=== PATIENT | female | born 2000 | race Caucasian/White ===

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

== ENCOUNTER 2021-07-05 | Emergency (ER) | payer MEDICAID ==
[~2021-07-05] VITALS: Ht 167.6 cm; Wt 134.0 kg
[2021-07-05 00:03] VITALS: BP 154/76
[2021-07-05] MEDS ORDERED: BENZ-16 MT (02:13)
== END 2021-07-05 02:40 | disposition home or self-care (01) ==
LOC: ER
DX: J06.9 Acute upper respiratory infection, unspecified (principal); Z20.822 Contact with and (suspected) exposure to COVID-19
CPT/HCPCS: 99283; C9803; U0003; U0005

== ENCOUNTER 2024-07-26 13:30 | Emergency (ER) | payer MEDICAID ==
[~2024-07-26] VITALS: Ht 170.2 cm; Wt 105.0 kg
[~2024-07-26 13:30] MED LIST: BENZ-16 MT
[2024-07-26 14:32] VITALS: O2SAT 100
[2024-07-26] MEDS: ACETAMINOPHEN 325MG TABLET PO ONE (21:00)
[2024-07-26] MEDS: ONDANSETRON 4MG ODT PO ONE (21:00)
[2024-07-26] MEDS ORDERED: TOPUD MT (22:11)
[2024-07-26] MEDS ORDERED: ONDA4TAB50 MT (22:11)
[2024-07-26 22:45] VITALS: BP 129/75; PULSE 84; RESP 20; TEMP 36.94740; O2SAT 100
== END 2024-07-26 22:45 | disposition home or self-care (01) ==
LOC: ER 13:30
DX: J18.9 Pneumonia, unspecified organism (principal); N39.0 Urinary tract infection, site not specified; R11.2 Nausea with vomiting, unspecified; R42 Dizziness and giddiness
CPT/HCPCS: 99283; Q0162